=== PATIENT | female | born 1950 | race Caucasian/White ===

== ENCOUNTER → 2018-02-24 11:58 | Outpatient (CLI) | payer MEDICARE | END | disposition home or self-care (01) | LOC: D.CT 11:58 | DX: R10.9 Unspecified abdominal pain (principal) ==

== ENCOUNTER 2018-05-20 05:55 | Day surgery (SDC) | payer MEDICARE ==
[2018-05-18 16:03] LABS: BASOPHILS 1.8 % (0-2); EOSINOPHILS 5.3 % (0-7); HEMATOCRIT 41.1 % (36.0-48.0); HEMOGLOBIN 13.7 g/dL (12-16); IMMATURE GRANULOCYTES 0.3 % (0-5); LYMPHOCYTES 28.9 % (15-50); MCH 31.9 pg (26.0-34.0); MCHC 33.3 g/dL (31.0-37.0); MCV 95.6 fL (80.0-100.0); MEAN PLATELET VOLUME 10.6 fL (7.4-10.4); MONOCYTES 10.6 % (2-11); NEUTROPHILS 53.1 % (40-80); PLATELET COUNT 192 10x3/uL (130-400); RDW 13.5 % (11.5-14.5)
[2018-05-18 16:27] LABS: CALC OSMOLALITY 276 mosm/kg (275-300); CALCIUM 8.4 mg/dL (8.5-10.1); CHLORIDE - SERUM 103 mmol/L (98-107); CREATININE - SERUM 0.6 mg/dL (0.6-1.3); GLUCOSE 86 mg/dL (74-106); POTASSIUM - SERUM 3.8 mmol/L (3.5-5.1); SODIUM 139 mmol/L (136-145); UREA NITROGEN 13 mg/dL (7-18); eGFR NON AFRICAN AMERICAN > 90 mL/min (90-120)
[2018-05-18 16:28] LABS: APTT 28.6 SECONDS (22.8-39.4); INR 1.04 (0.85-1.17); PROTIME 13.1 SECONDS (11.6-15.0)
[~2018-05-20] VITALS: Ht 160 cm; Wt 78.0 kg
--- NOTE | ~2018-05-20 | OP ---
PATIENT NAME: PEREZ JIMÉNEZ MEDICAL RECORD: [id number] :46 LOCATION:[facility] ADMISSION DATE: SURGEON: PAL CABAN MD DATE OF OPERATION: 05/20/2018 PREOPERATIVE DIAGNOSES: 1. Appendiceal mass. 2. Ventral incisional hernia. 3. Hypertension. POSTOPERATIVE DIAGNOSES: 1. Appendiceal mass. 2. Ventral incisional hernia. 3. Hypertension. PROCEDURES: 1. Laparoscopic appendectomy. 2. Ventral incisional hernia repair without mesh. SURGEON: Pal Caban MD REPORT OF PROCEDURE: The patient's abdomen was prepped and draped in sterile fashion. A cutdown was made on the superior aspect of the umbilicus. The 0 Vicryls were placed on the fascia bilaterally and the fascia was incised with 15-blade. I then bluntly entered the peritoneal cavity and placed a 12-mm Natty port. Under direct visualization, a 5-mm trocar was placed in the left lower quadrant and another was placed in the suprapubic region. The appendix was easily visualized. There were no signs of any acute inflammatory changes. A window was made at the base of the appendix between the appendix and the mesoappendix. This mesoappendix was transected with a 45 white load Endo-DREW stapler. We then pulled back some of the fatty tissue off the distal end of the cecum. There was a bleeding vessel present at this point and this was treated with electrocautery to discontinue any bleeding. Once we had the appendix freed up, then it was transected at its base and incorporating a portion of the cecum using a 45 blue load Endo-DREW stapler. This appendix was placed into an Endo Catch bag and sent off for frozen section. As they evaluated this, they stated that there was no sign of any malignancy present. The inflammation was due to [id number] appendicitis. At this point, the ports and insufflation were then removed. The patient had a hernia defect in the midline in the epigastrium from a previous trocar site. A longitudinal incision was made overlying this hernia. Electrocautery was used to dissect through the subcutaneous tissues to the hernia sac. This hernia sac was excised down to the fascial edges. The defect was a little over a centimeter in greatest diameter. We freed up the edges of the hernia defect and then reapproximated the hernia longitudinally using multiple interrupted 0 Prolenes. There was good approximation of the tissue with no sign of any major tension. The wounds were then irrigated out thoroughly with normal saline. The midline fascia above the umbilicus was closed with interrupted 0 Vicryls times 3. The incisions were infused with a total of 15 mL of 0.25% Marcaine with epinephrine. The skin incisions were then closed with subcutaneous 5-0 Monocryl and dressed appropriately. COMPLICATIONS: None. CONDITION: Stable. OPERATIVE REPORT [id number] PEREZ JIMÉNEZ ANESTHESIA: General endotracheal and local. BLOOD LOSS: Minimal. TRANSINT:[id number] Voice Confirmation ID: [id number] DOCUMENT ID: [id number] PAL CABAN MD CC: BRANDI PULLIAM MD and HEIDI SUTHERLAND DO [id number] DICTATION DATE: 05/20/18919 VICE PRESIDENT OF ADVERTISING: 05/20/1848 [facility] [address] [place] [address]
[~2018-05-20 05:55] MED LIST: CARDURA1 MG PO
[2018-05-20 06:41] VITALS: BP 142/61; Ht 160 cm; Wt 78.0 kg
[2018-05-20] MEDS ORDERED: HYDROCODON-ACE1 EA10 PO (09:10)
--- NOTE | 2018-05-20 10:20 | NUR ---
REC'D FROM RR. DROWSY. AROUSES TO VERBAL STIMULI. FAMILY AT BEDSIDE. DRESSINGS CDI TO ABDOMEN.
--- NOTE | 2018-05-20 10:50 | NUR ---
TOLERATING SPRITE. WAITING ON FL TRAY.
--- NOTE | 2018-05-20 11:30 | NUR ---
FL TRAY BROUGHT TO PT. FAMILY NOT AT BEDSIDE. ICE PACK BROUGHT TO PT. NO C/O VOICED.
--- NOTE | 2018-05-20 12:28 | NUR ---
TOLERATED FL TRAY. STILL NO URGE TO VOID. DRINKING SPRITE AND IV FLUID INFUSING. FAMILY AT BEDSIDE.
--- NOTE | 2018-05-20 13:00 | NUR ---
SALINE LOCK TO LEFT HAND DC'D. STILL NO URGE TO VOID,
--- NOTE | 2018-05-20 14:20 | NUR ---
LYING WITH EYES CLOSED. AROUSED TO VERBAL STIMULI. RELATES STILL DOES NOT HAVE THE URGE TO URINATE. ENCOURAGED PATIENT TO TRY AND GET UP AND MOVE AROUND. ASSISTED TO BATHROOM.
--- NOTE | 2018-05-20 14:35 | NUR ---
PATIENT VOIDED. BACK TO BED. APPLE JUICE BROUGHT TO PT.
--- NOTE | 2018-05-20 14:45 | NUR ---
IV DC'D WITH CATHETER INTACT. WRITTEN AND VERBAL DC INST GIVEN TO PT ALONG WITH RX. VERBALIZED UNDERSTANDING.
--- NOTE | 2018-05-20 15:00 | NUR ---
DC'D HOME WITH FAMILY VIA PRIVATE VEHICLE. TAKEN TO VEHICLE VIA WC. STABLE AT TIME OF DC,
== END 2018-05-20 15:00 | disposition home or self-care (01) ==
LOC: D.OPS 05:55
PROVIDERS: Anesthesiology; ATTEND Surgery
DX: K36 Other appendicitis (principal); K43.2 Incisional hernia without obstruction or gangrene; I10 Essential (primary) hypertension; Z01.812 Encounter for preprocedural laboratory examination